=== PATIENT | female | born 1990 | race American Indian/Alaskan Native ===

== ENCOUNTER 2017-08-22 20:58 | Emergency (ER) | payer BC ==
[2017-08-22 22:35] LABS: Basophils % (Auto) 2.4 % (0.0-1.8); Eosinophils % (Auto) 2.9 % (0.0-4.3); Hematocrit 39.8 % (30.3-42.9); Mean Corpuscular HGB Conc 33 % (30-34); Mean Corpuscular Hemoglobin 29 pg (28-32); Mean Corpuscular Volume 89 fl (79-97); Platelet Count 276 K/mm3 (140-440); Red Blood Count 4.48 M/mm3 (3.65-5.03); Red Cell Distribution Width 13.5 % (13.2-15.2)
[2017-08-22 22:54] LABS: Anion Gap 19 mmol/L; BUN/Creatinine Ratio 14; Blood Urea Nitrogen 10 mg/dL (7-17); Calcium 8.8 mg/dL (8.4-10.2); Carbon Dioxide 22 mmol/L (22-30); Chloride 104.5 mmol/L (98-107); Glucose 99 mg/dL (65-100); Potassium 3.8 mmol/L (3.6-5.0); Sodium 142 mmol/L (137-145)
[2017-08-23 00:45] LABS: Urine Drugs of Abuse Note Disclamer
[2017-08-23 01:07] LABS: Bilirubin,Urine NEG (Negative); Blood,Urine NEG (Negative); Ketones,Urine NEG (Negative); Leukocyte Esterase,Urine TR (Negative); Mucus,Urine 1+ /HPF; Nitrite,Urine NEG (Negative); Protein,Urine <15 mg/dL mg/dL (Negative); RBC,Urine < 1.0 /HPF (0.0-6.0); Urobilinogen,Urine < 2.0 mg/dL (<2.0)
--- NOTE | 2017-08-23 01:38 | Emergency Department Report ---
ED Psych HPI - General Chief Complaint: Medical Clearance Stated Complaint: JAYLENE MUNGUIA Time Seen by Provider: 08/23/17 01:32 Source: patient, EMS Mode of arrival: Ambulatory Limitations: No Limitations - History of Present Illness Initial Comments: 27-year-old female with no significant past medical history presents to the hospital with suicidal ideation. She is having problems in her household with her significant other. She is not specific as to what problems she is having. She had a gun in her hand that was threatening to shoot herself. Previous history of suicide attempt as a teenager via overdose. Patient does not have any current psychiatric diagnosis or treatment. Positive alcohol intake today. No physical complaints. - Related Data Home Medications Medication Instructions Recorded Confirmed Last Taken No Known Home Medications [No 08/23/17 08/23/17 Unknown Reported Home Medications] Allergies Allergy/AdvReac Type Severity Reaction Status Date / Time No Known Allergies Allergy Verified 08/22/17 21:42 ED Review of Systems ROS: Stated complaint: JAYLENE EVAL Other details as noted in HPI Comment: All other systems reviewed and negative Other: Constitutional: No fevers chills Eyes: No eye pain visual changes ENT: No ear pain or throat pain Neck: Denies pain Respiratory: Denies cough wheezing shortness of breath GI: Denies abdominal pain, nausea, vomiting, diarrhea : Denies dysuria Musculoskeletal: Denies back pain, joint swelling Skin: Denies rash, lesions, erythema Neurologic: Denies headache, numbness, weakness Psychiatric: Denies hallucinations ED Past Medical Hx - Past Medical History Previous Medical History?: No - Surgical History Past Surgical History?: Yes Additional Surgical History: c section x 3 - Social History Smoking Status: Never Smoker Substance Use Type: Alcohol - Medications Home Medications: Home Medications Medication Instructions Recorded Confirmed Last Taken Type No Known Home Medications [No 08/23/17 08/23/17 Unknown History Reported Home Medications] ED Physical Exam - General Limitations: No Limitations - Other Other exam information: General: No limitations, patient is alert in no acute distress Head exam: Atraumatic, normocephalic Eyes exam: Normal appearance ENT: Moist mucous membrane, normal oropharynx Neck exam: Normal inspection, full range of motion, no meningismus nontender Respiratory exam: Clear to auscultation bilateral, no wheezes, rales, crackles Cardiovascular: Normal rate and rhythm, normal heart sounds Abdomen: Soft, nondistended, and nontender, with normal bowel sounds, no rebound, or guarding Extremity: Full range of motion normal inspection no deformity Back: Normal Inspection, full range of motion, no tenderness Neurologic: Alert, oriented x3, cranial nerves intact, no motor or sensory deficit Psychiatric: normal affect, normal mood Skin: Warm, dry, intact ED Course Vital Signs 08/22/17 08/22/17 21:11 21:17 Temperature 98 F 98 F Pulse Rate 80 83 Respiratory 18 18 Rate Blood Pressure 108/64 Blood Pressure 108/64 [Left] O2 Sat by Pulse 96 98 Oximetry ED Medical Decision Making - Lab Data Result diagrams: 08/22/17 21:52 08/22/17 21:52 Lab Results 08/22/17 08/22/17 08/22/17 Range/Units 21:52 21:52 21:52 WBC (4.5-11.0) K/mm3 RBC (3.65-5.03) M/mm3 Hgb (10.1-14.3) gm/dl Hct (30.3-42.9) % MCV (79-97) fl MCH (28-32) pg MCHC (30-34) % RDW (13.2-15.2) % Plt Count (140-440) K/mm3 Lymph % (Auto) (13.4-35.0) % [place] % (Auto) (0.0-7.3) % Eos % (Auto) (0.0-4.3) % Baso % (Auto) (0.0-1.8) % Lymph # (1.2-5.4) K/mm3 [place] # (0.0-0.8) K/mm3 Eos # (0.0-0.4) K/mm3 Baso # (0.0-0.1) K/mm3 Seg Neutrophils % (40.0-70.0) % Seg Neutrophils # (1.8-7.7) K/mm3 Sodium 142 (137-145) mmol/L Potassium 3.8 (3.6-5.0) mmol/L Chloride 104.5 (98-107) mmol/L Carbon Dioxide 22 (22-30) mmol/L Anion Gap 19 mmol/L BUN 10 (7-17) mg/dL Creatinine 0.7 (0.7-1.2) mg/dL Estimated GFR > 60 ml/min BUN/Creatinine Ratio 14 % Glucose 99 (65-100) mg/dL Calcium 8.8 (8.4-10.2) mg/dL HCG, Qual Negative (Negative) Urine Color (Yellow) Urine Turbidity (Clear) Urine pH (5.0-7.0) Ur Specific [place] (1.003-1.030) Urine Protein (Negative) mg/dL Urine Glucose (UA) (Negative) mg/dL Urine Ketones (Negative) mg/dL Urine Blood (Negative) Urine Nitrite (Negative) Urine Bilirubin (Negative) Urine Urobilinogen (<2.0) mg/dL Ur Leukocyte Esterase (Negative) Urine WBC (Auto) (0.0-6.0) /HPF Urine RBC (Auto) (0.0-6.0) /HPF U Epithel Cells (Auto) (0-13.0) /HPF Hyaline Casts /LPF Urine Mucus /HPF Urine Opiates Screen Urine Methadone Screen Ur Barbiturates Screen Ur Phencyclidine Scrn Ur Amphetamines Screen U Benzodiazepines Scrn Urine Cocaine Screen U Marijuana (THC) Screen Drugs of Abuse Note Plasma/Serum Alcohol 0.03 (0-0.07) gm% 08/22/17 08/22/17 08/22/17 Range/Units 21:52 Unknown Unknown WBC 7.0 (4.5-11.0) K/mm3 RBC 4.48 (3.65-5.03) M/mm3 Hgb 13.0 (10.1-14.3) gm/dl Hct 39.8 (30.3-42.9) % MCV 89 (79-97) fl MCH 29 (28-32) pg MCHC 33 (30-34) % RDW 13.5 (13.2-15.2) % Plt Count 276 (140-440) K/mm3 Lymph % (Auto) 22.6 (13.4-35.0) % [place] % (Auto) 6.7 (0.0-7.3) % Eos % (Auto) 2.9 (0.0-4.3) % Baso % (Auto) 2.4 H (0.0-1.8) % Lymph # 1.6 (1.2-5.4) K/mm3 [place] # 0.5 (0.0-0.8) K/mm3 Eos # 0.2 (0.0-0.4) K/mm3 Baso # 0.2 H (0.0-0.1) K/mm3 Seg Neutrophils % 65.4 (40.0-70.0) % Seg Neutrophils # 4.6 (1.8-7.7) K/mm3 Sodium (137-145) mmol/L Potassium (3.6-5.0) mmol/L Chloride (98-107) mmol/L Carbon Dioxide (22-30) mmol/L Anion Gap mmol/L BUN (7-17) mg/dL Creatinine (0.7-1.2) mg/dL Estimated GFR ml/min BUN/Creatinine Ratio % Glucose (65-100) mg/dL Calcium (8.4-10.2) mg/dL HCG, Qual (Negative) Urine Color Yellow (Yellow) Urine Turbidity Clear (Clear) Urine pH 6.0 (5.0-7.0) Ur Specific [place] 1.026 (1.003-1.030) Urine Protein <15 mg/dl (Negative) mg/dL Urine Glucose (UA) Neg (Negative) mg/dL Urine Ketones Neg (Negative) mg/dL Urine Blood Neg (Negative) Urine Nitrite Neg (Negative) Urine Bilirubin Neg (Negative) Urine Urobilinogen < 2.0 (<2.0) mg/dL Ur Leukocyte Esterase Tr (Negative) Urine WBC (Auto) 2.0 (0.0-6.0) /HPF Urine RBC (Auto) < 1.0 (0.0-6.0) /HPF U Epithel Cells (Auto) 3.0 (0-13.0) /HPF Hyaline Casts 1 /LPF Urine Mucus 1+ /HPF Urine Opiates Screen Presumptive negative Urine Methadone Screen Presumptive negative Ur Barbiturates Screen Presumptive negative Ur Phencyclidine Scrn Presumptive negative Ur Amphetamines Screen Presumptive negative U Benzodiazepines Scrn Presumptive negative Urine Cocaine Screen Presumptive negative U Marijuana (THC) Screen Presumptive negative Drugs of Abuse Note Disclamer Plasma/Serum Alcohol (0-0.07) gm% - Medical Decision Making 1013 and transfer forms have been signed given suicidal ideation and threatening to use a gun to kill himself. Patient is medically clear for psychiatric transfer - Differential Diagnosis suicidal, depressed, psychiatric disorder Critical Care Time: No Critical care attestation.: If time is entered above; I have spent that time in minutes in the direct care of this critically ill patient, excluding procedure time. ED Disposition Clinical Impression: Suicidal ideation, Medical clearance for psychiatric admission Disposition: [id number]/TX-[id number] PSY HOSP/PSY UNIT Is pt being admited?: No Condition: Stable Time of Disposition: 01:38 (awaiting acceptance)
--- NOTE | 2017-08-23 12:57 | Consultation ---
History of Present Illness - Reason for Consult Consult date: 08/23/17 Reason for consult: Mental Health Evaluation Requesting physician: CATHY WILSON - Chief Complaint Chief complaint: It's not true" - History of Present Psychiatric Illness 27-year-old female with no significant past medical history presents to the hospital with suicidal ideation. Today patient is calm and cooperative during the assessment. She stated that she is having issues with her children's father (family dynamics). She stated that she became "overwhelmed" yesterday and called her mother stating that she was "tired of this or living." She could not remember exactly what she told her mother per the patient. Per the patient, her mother called the police and they arrived to her residence. She did admit to a gun next to her, but denies having it in her hand. Per collateral from her mother, [place] the patient did called her and stated, "I'm going to kill" and the phone hung up. She stated that she did not know what her daughter was planning, possibly kill herself or someone else during the phone call. Her mother stated that her daughter attempted suicide in the past because of depression symptoms (adolescent). The patient stated that there's ongoing issues with her children's father and plan to report his actions to the proper authorities. She denies SI/HI's and AVH's. She denies sleep disturbance and a poor appetite. She denies recreational drug use and excessive alcohol consumption (etoh). Patient admitted to consuming alcohol (etoh) prior to her admission because she had went to a alliance party. Her alcohol serum 0.03 on admission. Medications and Allergies Allergies Allergy/AdvReac Type Severity Reaction Status Date / Time No Known Allergies Allergy Verified 08/22/17 21:42 Home Medications Medication Instructions Recorded Confirmed Last Taken Type No Known Home Medications [No 08/23/17 08/23/17 Unknown History Reported Home Medications] Past psychiatric history - Past Medical History Past Medical History: No medical history Past Surgical History: - past Psychiatric treatment and history psychiatric treatment history: Patient denies a psy hx and a fam psy hx. - Social History Social history: lives with family ( graduate) Mental Status Exam - Vital signs Last Vital Signs Temp 98 F 08/22/17 21:17 Pulse 83 08/22/17 21:17 Resp 18 08/22/17 21:17 BP 108/64 08/22/17 21:17 Pulse Ox 98 08/22/17 21:17 - Exam Narrative exam: MSE: Appearance: calm, cooperative Behavior: regular eye contact Speech: regular rate and tone Mood: "okay" Affect: congruent to mood Thought Process: linear Thought Content: denies SI/HI's and AVH's Motor Activity: ambulatory Cognition: A/O x3 Insight: variable Judgment: variable Results Result Diagrams: 08/22/17 21:52 08/22/17 21:52 Abnormal lab results 08/22/17 Range/Units 21:52 Baso % (Auto) 2.4 H (0.0-1.8) % Baso # 0.2 H (0.0-0.1) K/mm3 All other labs normal. Assessment and Plan Assessment and plan: Impression: Unspecified Mood DO. Possible Alcohol Use DO. Today patient is calm and cooperative during the assessment. Prior suicide attempt as an adolescent. Alcohol serum 0.03. DDx: R/O MDD Recommendation/Plan: Continue 1013 with placement to [facility] today.
[2017-08-23 14:32] VITALS: BP 103/67
== END 2017-08-23 14:40 ==
LOC: ED 20:58 → EEVIPCON 20:58 → ED 08-23 14:40
DX: R45.851 Suicidal ideations (principal)
CPT/HCPCS: 36415; 80048; 80307; 81001; 84703; 85025; 99285; G0480; 80320